=== PATIENT | female | born 1960 | race Caucasian/White ===

== ENCOUNTER 2017-07-20 10:15 | Emergency (ER) | payer MEDICAID, MEDICARE ==
[2017-07-20 11:40] LABS: Basophils % (Auto) 0.6 % (0.0-1.8); Eosinophils % (Auto) 0.6 % (0.0-4.3); Hemoglobin 15.2 gm/dl (10.1-14.3); Mean Corpuscular HGB Conc 34 % (30-34); Mean Corpuscular Hemoglobin 28 pg (28-32); Mean Corpuscular Volume 82 fl (79-97); Platelet Count 274 K/mm3 (140-440); Red Blood Count 5.51 M/mm3 (3.65-5.03); Red Cell Distribution Width 14.6 % (13.2-15.2); White Blood Count 7.5 K/mm3 (4.5-11.0)
[2017-07-20 11:44] LABS: BUN/Creatinine Ratio 15.71; Blood Urea Nitrogen 11 mg/dL (7-17); Carbon Dioxide 30 mmol/L (22-30)
[2017-07-20 11:45] LABS: Anion Gap 17 mmol/L; Calcium 9.8 mg/dL (8.4-10.2); Chloride 99.6 mmol/L (98-107); Glucose 101 mg/dL (65-100); Potassium 3.7 mmol/L (3.6-5.0); Sodium 143 mmol/L (137-145)
--- NOTE | 2017-07-20 12:04 | XRay Report ---
ROUTINE CHEST, TWO VIEWS: HISTORY: Shortness of breath. The trachea, heart, mediastinal contour, lung gorman and bony thorax are unremarkable. IMPRESSION: Unremarkable chest x-ray.
--- NOTE | 2017-07-20 22:25 | Emergency Department Report ---
ED Anxiety HPI - General Chief Complaint: Dyspnea/Respdistress Stated Complaint: CHEST PAIN AND SOB Time Seen by Provider: 07/20/17 22:04 Source: patient Mode of arrival: Ambulatory - History of Present Illness Initial Comments: 57-year-old female with a past medical history of hypertension and bipolar disorder presents to the hospital requesting medication for anxiety. Patient has not been sleeping the past 2 days. She complains of increased stressors and anxiety. She complained of tightness to left chest under her arm with shortness of breath. Patient also having a cough productive of yellow sputum. No shortness of breath reported at this time. Pain is reproducible with palpation and movement. She thinks that it might of improved after taking aspirin. Similar symptoms in the past secondary to anxiety. She has been out of Seroquel and Xanax for at least 3 months. She scheduled an appointment with a psychiatrist but the earliest available is July 31. Patient feels like she cannot wait until this time to receive her medication. - Related Data Home Medications: Previous Rx's Medication Instructions Recorded Last Taken Type ALPRAZolam [Xanax TAB] 1 mg PO BID PRN #10 tab 07/20/17 Unknown Rx Ibuprofen [Motrin] 600 mg PO Q8H PRN #30 tablet 07/20/17 Unknown Rx Allergies/Adverse Reactions: Allergies Allergy/AdvReac Type Severity Reaction Status Date / Time Iodinated Contrast Media - Allergy Itching Verified 07/20/17 10:56 IV Dye Sulfa (Sulfonamide Allergy Itching Verified 07/20/17 10:56 Antibiotics) ED Review of Systems ROS: Stated complaint: CHEST PAIN AND SOB Other details as noted in HPI Comment: All other systems reviewed and negative Other: Constitutional: No fevers chills Eyes: No eye pain visual changes ENT: No ear pain or throat pain Neck: Denies pain Respiratory: As per HPI Cardiovascular: Denies , palpitations, syncope GI: Denies abdominal pain, nausea, vomiting, diarrhea : Denies dysuria Musculoskeletal: Denies back pain Skin: Denies rash, lesions, erythema Neurologic: Denies headache, numbness, weakness Psychiatric: Denies suicidal ideation, hallucinations ED Past Medical Hx - Past Medical History Hx Hypertension: Yes Hx Psychiatric Treatment: Yes (ANXIETY / DEPRESSION / BIPOLAR) - Surgical History Additional Surgical History: TUBAL LIGATION. BACK SURGERY - Social History Smoking Status: Current Some Day Smoker Substance Use Type: None - Medications Home Medications: Home Medications Medication Instructions Recorded Confirmed Last Taken Type ALPRAZolam [Xanax TAB] 1 mg PO BID PRN #10 tab 07/20/17 Unknown Rx Ibuprofen [Motrin] 600 mg PO Q8H PRN #30 tablet 07/20/17 Unknown Rx ED Physical Exam - General Limitations: No Limitations - Other Other exam information: General: No limitations, patient is alert in no acute distress Head exam: Atraumatic, normocephalic Eyes exam: Normal appearance ENT: Moist mucous membrane, normal oropharynx Neck exam: Normal inspection, full range of motion, no meningismus nontender Respiratory exam: Clear to auscultation bilateral, no wheezes, rales, crackles Cardiovascular: Normal rate and rhythm, normal heart sounds. Reproducible left- sided pectoralis muscle tenderness extending to the axilla Abdomen: Soft, nondistended, and nontender, with normal bowel sounds, no rebound, or guarding Extremity: Full range of motion normal inspection no deformity, no calf tenderness or edema Back: Normal Inspection, full range of motion, no tenderness Neurologic: Alert, oriented x3, cranial nerves intact, no motor or sensory deficit Psychiatric: normal affect, normal mood Skin: Warm, dry, intact ED Course Vital Signs 07/20/17 11:01 Temperature 99.0 F Pulse Rate 75 Respiratory 18 Rate Blood Pressure 148/92 O2 Sat by Pulse 99 Oximetry ED Medical Decision Making - Lab Data Result diagrams: 07/20/17 11:12 07/20/17 11:12 Lab Results 07/20/17 07/20/17 Range/Units 11:12 11:12 WBC 7.5 (4.5-11.0) K/mm3 RBC 5.51 H (3.65-5.03) M/mm3 Hgb 15.2 H (10.1-14.3) gm/dl Hct 45.0 H (30.3-42.9) % MCV 82 (79-97) fl MCH 28 (28-32) pg MCHC 34 (30-34) % RDW 14.6 (13.2-15.2) % Plt Count 274 (140-440) K/mm3 Lymph % (Auto) 31.4 (13.4-35.0) % [place] % (Auto) 8.2 H (0.0-7.3) % Eos % (Auto) 0.6 (0.0-4.3) % Baso % (Auto) 0.6 (0.0-1.8) % Lymph # 2.4 (1.2-5.4) K/mm3 [place] # 0.6 (0.0-0.8) K/mm3 Eos # 0.0 (0.0-0.4) K/mm3 Baso # 0.0 (0.0-0.1) K/mm3 Seg Neutrophils % 59.2 (40.0-70.0) % Seg Neutrophils # 4.5 (1.8-7.7) K/mm3 Sodium 143 (137-145) mmol/L Potassium 3.7 (3.6-5.0) mmol/L Chloride 99.6 (98-107) mmol/L Carbon Dioxide 30 (22-30) mmol/L Anion Gap 17 mmol/L BUN 11 (7-17) mg/dL Creatinine 0.7 (0.7-1.2) mg/dL Estimated GFR > 60 ml/min BUN/Creatinine Ratio 15.71 % Glucose 101 H (65-100) mg/dL Calcium 9.8 (8.4-10.2) mg/dL Troponin T < 0.010 (0.00-0.029) ng/mL - EKG Data -: EKG Interpreted by Me (nsr rate 72, no stemi/t inv) - EKG Data When compared to previous EKG there are: previous EKG unavailable - Radiology Data Radiology results: report reviewed (chest x-ray: Unremarkable) - Medical Decision Making Patient assisting her symptoms are similar to anxiety. Appears that this is the case as patient also having difficulty sleeping, increased stressors, and stating that the symptoms are similar to previous episodes. EKG and cardiac enzymes unremarkable. Patient will be prescribed several doses of Xanax and Vistaril as needed. - Differential Diagnosis anxiety, [place], atypical chest pain, PE Critical Care Time: No Critical care attestation.: If time is entered above; I have spent that time in minutes in the direct care of this critically ill patient, excluding procedure time. ED Disposition Clinical Impression: Anxiety, Musculoskeletal chest pain Disposition: - TO HOME OR SELFCARE Is pt being admited?: No Does the pt Need Aspirin: No Condition: Stable Instructions: Chest Pain (ED), Anxiety (ED) Additional Instructions: Take the medication as needed. Follow-up with your psychiatrist. Return if symptoms worsen. Prescriptions: ALPRAZolam [Xanax TAB] 1 mg PO BID PRN #10 tab PRN Reason: Anxiety Ibuprofen [Motrin] 600 mg PO Q8H PRN #30 tablet PRN Reason: Pain Referrals: ERICA OLSEN MD [Primary Care Provider] - 3-5 Days Time of Disposition: 22:31
[2017-07-20 22:46] VITALS: BP 139/84
== END 2017-07-20 22:49 | disposition home or self-care (01) ==
LOC: ED 10:15
DX: F41.9 Anxiety disorder, unspecified (principal); R07.89 Other chest pain; I10 Essential (primary) hypertension; F31.9 Bipolar disorder, unspecified; Z72.0 Tobacco use; Z88.2 Allergy status to sulfonamides; Z91.041 Radiographic dye allergy status
CPT/HCPCS: 36415; 71020; 80048; 84484; 85025; 93005; 93010

== ENCOUNTER 2017-08-18 18:28 | Emergency (ER) | payer MEDICAID ==
--- NOTE | 2017-08-18 20:18 | XRay Report ---
FINAL REPORT EXAM: XR FOOT 3+V LT HISTORY: foot pain TECHNIQUE: Left foot three views PRIORS: None. FINDINGS: There is hallux valgus deformity 1st metatarsophalangeal joint with joint space narrowing. No acute fracture identified. No dislocation seen. Joint spaces are otherwise within normal limits. No erosive bony changes are identified. IMPRESSION: Hallux valgus with degenerative change at the 1st metatarsal-phalangeal joint
[2017-08-18] MEDS ORDERED: FLEXERIL PO ONE (23:22)
[2017-08-18] MEDS ORDERED: NORCO 5/325 PO ONE (23:22)
[2017-08-18] MEDS ORDERED: TORADOL IM ONE (23:22)
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
[2017-08-19 00:44] VITALS: BP 121/85
== END 2017-08-19 00:44 | disposition home or self-care (01) ==
LOC: ED 18:28
DX: S90.32XA Contusion of left foot, initial encounter (principal); I10 Essential (primary) hypertension; F31.9 Bipolar disorder, unspecified; F17.200 Nicotine dependence, unspecified, uncomplicated; Z98.51 Tubal ligation status; Z88.1 Allergy status to other antibiotic agents; Z91.041 Radiographic dye allergy status; W01.0XXA Fall on same level from slipping, tripping and stumbling without subsequent striking against object, initial encounter; Y93.89 Activity, other specified; Y99.8 Other external cause status; Y92.89 Other specified places as the place of occurrence of the external cause
CPT/HCPCS: 73630; 96372; 99284; J1885